=== PATIENT | female | born 1960 | race Caucasian/White ===

== ENCOUNTER 2022-09-08 15:36 | Inpatient (IN) ==
[2022-09-08] MEDS ORDERED: AZITHROMYCIN 250 MG TABLET PO ONE (15:55)
[2022-09-08] MEDS ORDERED: IPRATROPIUM/ALBUTEROL 3 ML AMPUL.NEB NEB ONE ×3 (15:55→18:07)
[2022-09-08] MEDS ORDERED: methylPREDNISolone SOD SUCC 125 MG/2 ML VIAL IV ONE (15:55)
--- NOTE | 2022-09-08 15:59 | Emergency Department Note ---
SOB HPI General Chief Complaint: Shortness of Breath/Dyspnea Stated Complaint: shortness of breath Time Seen by Provider: 09/08/22 15:41 History of Present Illness HPI Narrative: Narrative: This is a pleasant 62-year-old female who presents emergency department with complaints of shortness of breath. She reports that she has COPD and she feels like this is an exacerbation and started couple days ago after she caught a cold. She has been coughing a lot more having body aches mild headache but she thinks that is from coughing so hard. She denies chest pain, abdominal pain, nausea, vomiting, diarrhea, dysuria urinary frequency or urgency. She does not have any history of acute coronary syndrome, no history of DVT or PE. No recent history of surgery or prolonged time immobilization. She denies lower extremity edema or calf pain. She does not think that she has congestive heart failure and does not take Lasix regularly but has taken them in the past when she has had some lower extremity edema. She is not experiencing any increase in her lower extremity edema. She denies paroxysmal nocturnal dyspnea. She reports that at home her oxygen level has been anywhere from mid 80s to 92 on room air. She does have an oxygen concentrator at home that she uses every night when she sleeps. She has been using her nebulizer treatments at home without significant improvement improvement. She reports that she has temporary relief and her oxygen is able to maintain in the low 90s after her breathing treatments but it does not last long. Related Data Home Medications Medication Instructions Recorded Confirmed acetaminophen 500 mg tablet 500 mg PO Q6H PRN 06/21/20 07/23/22 (Tylenol Extra Strength) omeprazole 40 mg capsule,delayed 40 mg PO QDAY 04/22/22 07/23/22 release Previous Rx's Medication Instructions Recorded hydrocortisone 2.5 % topical cream 1 applic DC BID PRN hemorrhoids 09/26/20 with perineal applicator #30 grams (Proctozone-HC) dicyclomine 10 mg capsule 10 mg PO TID #90 caps 11/12/21 estradiol 2 mg tablet 1 mg PO QDAY #45 tabs 12/11/21 celecoxib 100 mg capsule 100 mg PO BID #180 caps 04/10/22 lorazepam 1 mg tablet 0.5 - 1 mg PO QDAY PRN anxiety #30 05/10/22 tabs levothyroxine 125 mcg tablet See Rx Instructions .Route 07/08/22 .COMPLEX #90 tabs doxycycline monohydrate 100 mg 100 mg PO BID #20 caps 07/23/22 capsule Ventolin HFA 90 mcg/actuation See Rx Instructions .Route 08/19/22 aerosol inhaler (albuterol sulfate) .COMPLEX #18 grams budesonide 160 mcg-glycopyr 9 2 inh inhalation BID #10.7 grams 09/03/22 mcg-formot 4.8 mcg/actuation HFA inhaler (Breztri Aerosphere) ipratropium 0.5 mg-albuterol 3 mg 3 ml inhalation QID PRN shortness 09/03/22 (2.5 mg base)/3 mL nebulization of breath or wheezing #180 mL soln Allergies Allergy/AdvReac Type Severity Reaction Status Date / Time latex Allergy Severe itch,burning Verified 06/28/22 10:03 rash codeine Allergy Intermediate itchy and Verified 06/28/22 10:03 body cramps morphine Allergy Intermediate Vomiting Verified 06/28/22 10:03 Lodine Allergy Unknown Unknown Uncoded 06/28/22 10:03 Review of Systems ROS ROS Narrative: Narrative: All systems ED: reviewed and negative except as stated. PFSH Narrative Patient History Narrative: Narrative: Medical/Surgical/Family History All Active Problems (Updated 09/08/22 @ 18:36 by Victor M Plummer PA-C) Acute exacerbation of chronic obstructive pulmonary disease (Acute) Hypoxia (Acute) Bronchitis (Acute) Tobacco use (Chronic) Dermatitis (Acute) Cheilitis (Acute) Nocturnal hypoxemia (Chronic) COPD mixed type (Chronic) Pulmonary fibrosis (Acute) Hypersomnia (Acute) Bronchitis (Acute) Facet arthropathy (Chronic) Cervicalgia (Chronic) Chronic pain (Chronic) Myofascial pain (Acute) History of hernia repair (Chronic ~2012) History of surgery (Chronic) History of laparoscopic cholecystectomy (Chronic) History of colonoscopy (Chronic 04/13/18) History of bowel resection (Chronic ~12/2007) Joint pain (Chronic) History of hysterectomy (Chronic) Cholelithiasis (Chronic) Hormone replacement therapy (HRT) (Chronic) Hypothyroidism (Chronic) Anxiety (Chronic) Asthma (Chronic) Hyperlipidemia (Chronic) Metabolic syndrome X (Chronic) Vitamin D deficiency (Chronic) Abnormal electrocardiogram (Chronic) GERD (gastroesophageal reflux disease) (Chronic) Restless leg syndrome (Chronic) Fatigue (Chronic) Diverticulitis of colon without hemorrhage (Chronic) Hemorrhoids (Chronic) Smoker (Chronic) Emphysema lung (Chronic) Knee pain, right (Chronic) Obesity (Chronic) Osteoarthritis of right knee (Chronic) Encounter for long-term (current) use of medications (Chronic) Chronic neck and back pain (Chronic) Neck pain, acute (Chronic) Medical History Abnormal electrocardiogram Anxiety Asthma Cervicalgia Cholelithiasis Chronic neck and back pain Chronic pain COPD mixed type Diverticulitis of colon without hemorrhage Emphysema lung 2018 Encounter for long-term (current) use of medications Facet arthropathy Fatigue GERD (gastroesophageal reflux disease) Hemorrhoids Hormone replacement therapy (HRT) Hyperlipidemia Hypothyroidism Joint pain hx of joint pain: hip, knees, ankles, feet 2nd to obesity Knee pain, right Metabolic syndrome X Myofascial pain Neck pain, acute Nocturnal hypoxemia Obesity Osteoarthritis of right knee Restless leg syndrome Smoker Vitamin D deficiency Surgical History History of bowel resection (~12/2007) from Leiomyoma (benign) History of colonoscopy (04/13/18) Dr Gonzalez History of hernia repair (~2012) History of hysterectomy History of laparoscopic cholecystectomy History of surgery lapband placed in [place] 9.75 band with 4cc max fill (lost 75# 03/2009) was removed in 2013 and sleeve procedure done in [place] Family History Father High blood pressure Aortic aneurysm Mother Arthritis Sister Arthritis Unknown Cancer Other No pertinent family history Social History Smoking Status: Current every day smoker Alcohol Intake Frequency: does not drink Substance Use: does not use Exam Narrative Narrative: Narrative: General: Alert, in no acute distress Head: No trauma normocephalic Eyes: EOMs intact no scleral icterus or scleral injection Neck: Full range of motion, no midline tenderness ENT: Moist mucous membranes, uvula is midline. No sign of peritonsillar abscess or Sonali's angina. Cardiovascular: Regular rate and rhythm no murmur Respiratory: There is diffuse rhonchi. Expiratory wheezes diffusely. Poor aeration. Mild tachypnea Neuro: Patient is alert and oriented x3 Psych: Normal affect, normal mood Skin: Warm, no rash, normal color Extremity: Negative Homans' sign bilaterally. No unilateral leg edema. Course Vital Signs Vital signs: Vital Signs Temperature 97.9 F 09/08/22 15:55 Pulse Rate 99 H 09/08/22 15:55 Respiratory Rate 30 H 09/08/22 15:55 Blood Pressure 139/89 09/08/22 15:55 Pulse Oximetry (%) 81 L 09/08/22 15:55 Oxygen Delivery Method 09/08/22 15:55 Oxygen Flow Rate (L/min) 3 09/08/22 15:55 Temperature 97.9 F 09/08/22 15:55 Pulse Rate 92 H 09/08/22 18:21 Respiratory Rate 18 09/08/22 18:21 Blood Pressure 107/94 09/08/22 18:21 Pulse Oximetry (%) 93 09/08/22 18:21 Oxygen Delivery Method 09/08/22 18:04 Oxygen Flow Rate (L/min) 2 09/08/22 18:04 [facility] MDM Narrative Medical decision making narrative: Narrative: I have ordered: CBC reviewed and unremarkable CMP reviewed Troponin undetectable proBNP normal Chest x-ray 2 view IMPRESSION: Small patchy bilateral lower lobe infiltrates. C OPD ECG normal sinus rhythm DuoNeb for her wheezing 125 mg iv Solu-Medrol for reactive airway Azithromycin for prophylactic infection control with COPD exacerbation. I did consider pulmonary embolism as a cause for her symptoms but the patient I had shared decision making in regards to getting a D-dimer. She did not think that she wanted to get it since she really had a low suspicion or worry for pulmonary embolism. I agree with the no lower extremity symptoms or signs of DVT and no recent surgeries or procedures and with no chest pain and that she feels like this is a COPD exacerbation we will still get a troponin and proBNP but will hold off on a D-dimer at this time. After her first DuoNeb and Solu-Medrol she reported that she was not feeling like there is a whole lot of change in her breathing. When I read listen to her she did have better aeration although she was still having some wheezing and coarse breath sounds. We will try another DuoNeb and see how she does. After her third DuoNeb here in the emergency department the patient is still did not have a enough improvement in her dyspnea and she was still requiring more oxygen than her baseline. When we got her up to go to the bathroom she was on 2 L which is her baseline and she desatted down to 87%. She had to stop multiple times and could not seem to catch her breath. At this point we will admit for COPD exacerbation and hypoxia. Lab Data Result diagrams: 09/08/22 16:09 09/08/22 16:09 Labs: Lab Results 09/08/22 09/08/22 09/08/22 Range/Units 16:09 16:09 16:09 WBC 6.9 (4.5-11.0) K/mcL RBC 4.97 (3.59-5.38) M/mcL Hgb 14.7 (11.2-15.7) g/dL Hct 45.6 H (34.1-44.9) % MCV 91.8 (80.0-100.0) fL MCH 29.6 (26.0-34.0) pg MCHC 32.2 (31.0-36.0) g/dL RDW 13.8 (11.5-14.5) % Plt Count 204 (140-440) K/mcL MPV 9.4 (8.8-12.5) fL Immature Gran % (Auto) 0.1 (0.0-0.5) % Neut % (Auto) 59.3 (38.0-78.0) % Lymph % (Auto) 28.0 (15.5-49.0) % [place] % (Auto) 8.6 (1.0-12.0) % Eos % (Auto) 3.1 (0.0-7.0) % Baso % (Auto) 0.9 (0.0-2.0) % Lymph # (Auto) 1.92 (1.50-4.80) K/mcL [place] # (Auto) 0.59 (0.10-0.90) K/mcL Eos # (Auto) 0.21 (0.00-0.70) K/mcL Baso # (Auto) 0.06 (0.00-0.30) K/mcL Immature Gran # 0.01 (0.00-0.05) K/mcl Absolute Neutrophils 4.07 (1.80-8.00) K/mcL Sodium 137 (133-145) mmol/L Potassium 4.3 (3.3-5.1) mmol/L Chloride 102 (96-108) mmol/L Carbon Dioxide 27 (22-30) mmol/L Anion Gap 8.0 (8.0-16.0) BUN 11 (8-23) mg/dL Creatinine 0.6 (0.6-1.1) mg/dL GFR Calculation 98 Glucose 99 (70-105) mg/dL Calcium 9.7 (8.6-10.4) mg/dL Total Bilirubin < 0.2 (0.1-1.0) mg/dL AST 17 (<32) U/L ALT 17 (<40) U/L Alkaline Phosphatase 104 (39-117) U/L Troponin T < 0.01 (<0.03) ng/mL NT-Pro-B Natriuret Pep 113.8 (<125.0) pg/mL Total Protein 6.2 (5.9-8.4) gm/dL Albumin 3.7 (3.2-5.2) gm/dL Globulin 2.5 (2.2-3.7) gm/dL Albumin/Globulin Ratio 1.5 (1.0-2.3) ED POC Tests ED POC Tests: ALEX - Influenza A Negative ALEX - Influenza B Negative ALEX - SARS Antigen Negative EKG Data EKG #1: EKG results narrative: ECG shows a sinus rhythm at 88 beats minute, which right axis deviation, right bundle branch block, normal DC interval narrow QRS and QTC is at 480. There is no signs of Brugada, Tgmar-Wquxjuqjm-Vuwbo or HOCM. No ST segment deviations or hyperacute T waves. My interpretation is a sinus rhythm with a right bundle branch block. Discharge Plan Patient/Caregiver Discharge Instructions Pt seen by OUTREACH EDUCATOR/PA only: Yes Clinical Impression: Acute exacerbation of chronic obstructive pulmonary disease, Hypoxia Activity: increase activity as tolerated Patient Disposition: Xfer As Inpt ([facility]) Condition: Serious Follow up with: Ashley Persaud ARNP [Primary Care Provider] - Prescriptions: No Action hydrocortisone [Proctozone-HC] 2.5 % cream with perineal applicator 1 applic DC BID PRN (Reason: hemorrhoids) Qty: 30 4RF dicyclomine 10 mg capsule 10 mg PO TID Qty: 90 3RF estradiol 2 mg tablet 1 mg PO QDAY Qty: 45 3RF celecoxib 100 mg capsule 100 mg PO BID Qty: 180 1RF lorazepam 1 mg tablet 0.5 - 1 mg PO QDAY PRN (Reason: anxiety) Qty: 30 1RF levothyroxine 125 mcg tablet See Rx Instructions .ROUTE .COMPLEX Qty: 90 0RF Dose Instruction: TAKE 1 TABLET BY MOUTH EVERY DAY Rx Instructions: TAKE 1 TABLET BY MOUTH EVERY DAY albuterol sulfate [Ventolin HFA] 90 mcg/actuation HFA aerosol inhaler See Rx Instructions .ROUTE .COMPLEX Qty: 18 6RF Dose Instruction: INHALE 2 PUFFS FOUR TIMES DAILY NEEDED FOR BRONCHOSPASM Rx Instructions: INHALE 2 PUFFS FOUR TIMES DAILY NEEDED FOR BRONCHOSPASM ipratropium-albuterol 0.5 mg-3 mg(2.5 mg base)/3 mL solution for nebulization 3 ml inhalation QID PRN (Reason: shortness of breath or wheezing) Qty: 180 6RF Breztri Aerosphere 160-9-4.8 mcg/actuation HFA aerosol inhaler 2 inh inhalation BID Qty: 10.7 6RF acetaminophen [Tylenol Extra Strength] 500 mg tablet 500 mg PO Q6H PRN Breztri Aerosphere 160-9-4.8 mcg/actuation HFA aerosol inhaler 0RF omeprazole 40 mg capsule,delayed release(DR/EC) 40 mg PO QDAY doxycycline monohydrate 100 mg capsule 100 mg PO BID Qty: 20 0RF
[2022-09-08 16:49] LABS: Basophils # (Auto) 0.06 K/mcL (0.00-0.30); Basophils % (Auto) 0.9 % (0.0-2.0); Eosinophils # (Auto) 0.21 K/mcL (0.00-0.70); Eosinophils % (Auto) 3.1 % (0.0-7.0); Hematocrit 45.6 % (34.1-44.9); Hemoglobin 14.7 g/dL (11.2-15.7); Lymphocytes # (Auto) 1.92 K/mcL (1.50-4.80); Mean Cell Volume 91.8 fL (80.0-100.0); Mean Corpuscular HGB Conc 32.2 g/dL (31.0-36.0); Mean Platelet Volume 9.4 fL (8.8-12.5); Monocytes # (Auto) 0.59 K/mcL (0.10-0.90); Monocytes % (Auto) 8.6 % (1.0-12.0); Neutrophils % (Auto) 59.3 % (38.0-78.0); Platelet Count 204 K/mcL (140-440); RBC 4.97 M/mcL (3.59-5.38); Red Cell Distribution Width 13.8 % (11.5-14.5); WBC 6.9 K/mcL (4.5-11.0)
[2022-09-08 17:16] LABS: proBNP 113.8 pg/mL (<125.0)
[2022-09-08 17:30] LABS: ALT/SGPT 17 U/L (<40); AST/SGOT 17 U/L (<32); Albumin 3.7 gm/dL (3.2-5.2); Albumin/Globulin Ratio 1.5 (1.0-2.3); Alkaline Phosphatase 104 U/L (39-117); Bilirubin,Total < 0.2 mg/dL (0.1-1.0); Blood Urea Nitrogen 11 mg/dL (8-23); Calcium 9.7 mg/dL (8.6-10.4); Carbon Dioxide 27 mmol/L (22-30); Chloride 102 mmol/L (96-108); Globulin 2.5 gm/dL (2.2-3.7); Glomerular Filtration Rate 98; Glucose 99 mg/dL (70-105)
--- NOTE | 2022-09-08 17:59 | XRay Report ---
CLINICAL INFORMATION: COPD and wheezing COMPARISON: 06/19/2021 TECHNIQUE: PA and lateral views were obtained. FINDINGS: The heart size, mediastinum and pulmonary vessels are unremarkable. COPD changes noted. Small patchy infiltrates have developed in both lower lobes. No effusions. IMPRESSION: Small patchy bilateral lower lobe infiltrates. COPD Interpreted and Authenticated by: Stiven Johnson 09/08/22
[2022-09-08] MEDS ORDERED: ONDANSETRON 4 MG ODT TABLET SL PRN (20:05)
[2022-09-08] MEDS ORDERED: ONDANSETRON 4 MG/2 ML VIAL IV PRN (20:05)
[2022-09-08] MEDS ORDERED: MAGNESIUM HYDROXIDE 30 ML ORAL.SUSP PO PRN (20:05)
[2022-09-08] MEDS ORDERED: ZOLPIDEM 5 MG TABLET PO PRN (20:05)
--- NOTE | 2022-09-08 20:11 | Internal Med History&Physical ---
HPI History of Present Illness Patient information: Note initiated : 09/08/22 at 8:10 pm Patient: Polly Perez 62 y/o F admitted on for shortness of breath. Chief Complaint: SOB Chief complaint: Shortness of breath, nonproductive cough for 3 days History of present illness: Ms. Perez is a 62 year old female with known history of COPD on 2 L oxygen at night only, unvaccinated for COVID-19 and influenza by choice, active smoker a pack a day came to emergency room with complaint of progressive shortness of breath nonproductive cough for the past 3 days. Her symptoms got worse progressively. She has no chest pain. She denies fever chills. In the emergency room she was in moderate respiratory distress. She was given IV Solu- Medrol bronchodilator and antibiotic. Chest x-ray showed no evidence of acute pulmonary disease. Currently patient is in mild to moderate respiratory distress. She using accessory muscle respiration with respiratory rate over 30. She seems very uncomfortable. Review of Systems All systems: reviewed and no additional remarkable complaints except as stated Review of systems: Except as documented all systems reviewed and negative PFSH PFSH All Active Problems Acute exacerbation of chronic obstructive pulmonary disease (Acute) Hypoxia (Acute) Acute and chronic respiratory failure with hypoxia (Acute) Bronchitis (Acute) Tobacco use (Chronic) Dermatitis (Acute) Cheilitis (Acute) Nocturnal hypoxemia (Chronic) COPD mixed type (Chronic) Pulmonary fibrosis (Acute) Hypersomnia (Acute) Bronchitis (Acute) Facet arthropathy (Chronic) Cervicalgia (Chronic) Chronic pain (Chronic) Myofascial pain (Acute) History of hernia repair (Chronic ~2012) History of surgery (Chronic) History of laparoscopic cholecystectomy (Chronic) History of colonoscopy (Chronic 04/13/18) History of bowel resection (Chronic ~12/2007) Joint pain (Chronic) History of hysterectomy (Chronic) Cholelithiasis (Chronic) Hormone replacement therapy (HRT) (Chronic) Hypothyroidism (Chronic) Anxiety (Chronic) Asthma (Chronic) Hyperlipidemia (Chronic) Metabolic syndrome X (Chronic) Vitamin D deficiency (Chronic) Abnormal electrocardiogram (Chronic) GERD (gastroesophageal reflux disease) (Chronic) Restless leg syndrome (Chronic) Fatigue (Chronic) Diverticulitis of colon without hemorrhage (Chronic) Hemorrhoids (Chronic) Smoker (Chronic) Emphysema lung (Chronic) Knee pain, right (Chronic) Obesity (Chronic) Osteoarthritis of right knee (Chronic) Encounter for long-term (current) use of medications (Chronic) Chronic neck and back pain (Chronic) Neck pain, acute (Chronic) Medical History Abnormal electrocardiogram Anxiety Asthma Cervicalgia Cholelithiasis Chronic neck and back pain Chronic pain COPD mixed type Diverticulitis of colon without hemorrhage Emphysema lung 2018 Encounter for long-term (current) use of medications Facet arthropathy Fatigue GERD (gastroesophageal reflux disease) Hemorrhoids Hormone replacement therapy (HRT) Hyperlipidemia Hypothyroidism Joint pain hx of joint pain: hip, knees, ankles, feet 2nd to obesity Knee pain, right Metabolic syndrome X Myofascial pain Neck pain, acute Nocturnal hypoxemia Obesity Osteoarthritis of right knee Restless leg syndrome Smoker Vitamin D deficiency Surgical History History of bowel resection (~12/2007) from Leiomyoma (benign) History of colonoscopy (04/13/18) Dr Gonzalez History of hernia repair (~2012) History of hysterectomy History of laparoscopic cholecystectomy History of surgery lapband placed in [place] 9.75 band with 4cc max fill (lost 75# 03/2009) was removed in 2013 and sleeve procedure done in [place] Family History Father High blood pressure Aortic aneurysm Mother Arthritis Sister Arthritis Unknown Cancer Other No pertinent family history Social History household members: alone lives independently: Yes marital status: single occupational status: retired physical activity: none smoking status: Current every day smoker tobacco type: cigarettes per day: 15 pack-years: 40 alcohol intake frequency: does not drink substance use type: does not use MEDS/ALLERGIES Home Medications and Allergies Home Medications Medication Instructions Recorded Confirmed Type acetaminophen 500 mg tablet 500 mg PO Q6H PRN Pain 06/21/20 09/08/22 History (Tylenol Extra Strength) hydrocortisone 2.5 % topical cream 1 applic [place] BID PRN hemorrhoids 09/26/20 09/08/22 Rx with perineal applicator #30 grams (Proctozone-HC) dicyclomine 10 mg capsule 10 mg PO TID #90 caps 11/12/21 09/08/22 Rx estradiol 2 mg tablet 1 mg PO QDAY #45 tabs 12/11/21 09/08/22 Rx celecoxib 100 mg capsule 100 mg PO BID #180 caps 04/10/22 09/08/22 Rx omeprazole 40 mg capsule,delayed 40 mg PO BID 04/22/22 09/08/22 History release lorazepam 1 mg tablet 0.5 - 1 mg PO QDAY PRN anxiety #30 05/10/22 09/08/22 Rx tabs budesonide 160 mcg-glycopyr 9 2 inh inhalation BID #10.7 grams 09/03/22 09/08/22 Rx mcg-formot 4.8 mcg/actuation HFA inhaler (Breztri Aerosphere) ipratropium 0.5 mg-albuterol 3 mg 3 ml inhalation QID PRN shortness 09/03/22 09/08/22 Rx (2.5 mg base)/3 mL nebulization of breath or wheezing #180 mL soln albuterol sulfate 90 mcg/actuation 2 puff inhalation QIDP PRN muscle 09/08/22 09/08/22 History aerosol inhaler (Ventolin HFA) spasm levothyroxine 125 mcg tablet 1 tab PO QDAY 09/08/22 09/08/22 History Allergies Allergy/AdvReac Type Severity Reaction Status Date / Time latex Allergy Severe itch,burning Verified 06/28/22 10:03 rash codeine Allergy Intermediate itchy and Verified 06/28/22 10:03 body cramps morphine Allergy Intermediate Vomiting Verified 06/28/22 10:03 Lodine Allergy Unknown Unknown Uncoded 06/28/22 10:03 EXAM Constitutional Vitals: Temp Pulse Resp BP Pulse Ox O2 Del Method O2 Flow Rate 97.9 F 83 15 100/60 96 3 09/08/22 15:55 09/08/22 20:01 09/08/22 20:01 09/08/22 20:01 09/08/22 20:01 09/08/22 19:21 09/08/22 19:21 General: Well-developed, morbidly obese with BMI 40 in mild respiratory distress HEENT: Atraumatic, normocephalic.PERRLA, moist mucous membrane. Anicteric sclera Chest: No point tenderness.No point tenderness. Lungs: High respiratory rate, decreased breath sound bilaterally with bilateral inspiratory and expiratory wheezing Cardiovascular: Regular rate and rhythm. S1 + S2, no murmur gallop rub. No peripheral edema. No JVD Extremities: No peripheral edema. 2+ pulses bilateral equal and symmetric GI: Abdomen soft, nontender, positive bowel sounds. No hepatosplenomegaly. No rebound tenderness. No CVA tenderness. Conway sign is negative : No Ludwig catheter. No bladder distention FLOW WORKER: Awake alert oriented x3. Cranial nerves II through XII 12 grossly intact. Motor, sensory intact. DTR 2+ upper lower extremity: Symmetric Skin:Dry. No rash. Lymph: No lymphadenopathy Psychiatric: Normal mood and affect DATA Data Completed and Pending Labs: Labs from last 24 hours 09/08/22 09/08/22 09/08/22 16:09 16:09 16:09 WBC 6.9 RBC 4.97 Hgb 14.7 Hct 45.6 H MCV 91.8 MCH 29.6 MCHC 32.2 RDW 13.8 Plt Count 204 MPV 9.4 Immature Gran % (Auto) 0.1 Neut % (Auto) 59.3 Lymph % (Auto) 28.0 [place] % (Auto) 8.6 Eos % (Auto) 3.1 Baso % (Auto) 0.9 Lymph # (Auto) 1.92 [place] # (Auto) 0.59 Eos # (Auto) 0.21 Baso # (Auto) 0.06 Immature Gran # 0.01 Absolute Neutrophils 4.07 Sodium 137 Potassium 4.3 Chloride 102 Carbon Dioxide 27 Anion Gap 8.0 BUN 11 Creatinine 0.6 GFR Calculation 98 Glucose 99 Calcium 9.7 Total Bilirubin < 0.2 AST 17 ALT 17 Alkaline Phosphatase 104 Troponin T < 0.01 NT-Pro-B Natriuret Pep 113.8 Total Protein 6.2 Albumin 3.7 Globulin 2.5 Albumin/Globulin Ratio 1.5 Impressions Impressions: Chest x-ray: Small patchy bilateral lower lobe infiltrates. COPD A/P Sepsis Sepsis Identified: No Narrative A/P Narrative: 62 years old female with 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 #Acute on chronic hypoxic respiratory failure #COPD exacerbation #Community-acquired pneumonia, with bilateral lower lobe patchy infiltrate - CxR Small patchy bilateral lower lobe infiltrates. COPD - Covid 19, Inf Negative. -Continue azithromycin, add Rocephin for CAP. Solu-Medrol 40 every 8, bronchodilator, Acapella -Transfer to PCU. Start BiPAP if her symptoms got worse. Discussed with ICU/PCU team and housekeeping and laundry team leader #Unvaccinated for COVID-19 and influenza -High risk. I have long conversation with patient regarding importance of vaccination. She is going to consider it. #GERD -Continue home omeprazole #Hypothyroidism: -Continue home levothyroxine DVT PPX: Lovenox 40mg twice daily Code Status : Full code Disposition: Inpatient Plan of care discussed with patient and family member as well as RN Time Spent With Patient Time: Total time spent is greater than 50% in coordination of care (as documented) at patient's floor/unit and/or counseling patient: Total time spent with greater than 50% in coordination of care (as documented) at patient's floor/unit and/or counseling patient:: 50 - 70 minutes Critical Care Time: No
[2022-09-08] MEDS ORDERED: ALBUTEROL SULFATE 60 PUFF INHALER INH PRN ×2 (20:15→21:41)
[2022-09-08] MEDS ORDERED: LORazepam 1 MG TABLET PO PRN (20:55)
[2022-09-08] MEDS: IPRATROPIUM/ALBUTEROL 3 ML AMPUL.NEB NEB PRN (21:08)
[2022-09-08] MEDS ORDERED: morphine 2 MG/ML VIAL IV PRN (21:42)
[2022-09-08] MEDS ORDERED: guaiFENesin/DEXTROMETHORPHAN ORAL SOL ONE (22:25)
[2022-09-08] MEDS: LORazepam 1 MG TABLET PO PRN (22:29)
[2022-09-08] MEDS: cefTRIAXone 1 GM VIAL IV SCH (22:29)
[2022-09-08] MEDS: DOCUSATE SODIUM 100 MG CAPSULE PO SCH (22:29)
[2022-09-08] MEDS: ENOXAPARIN 40 MG/0.4 ML SYRINGE SQ SCH (22:29)
[2022-09-08] MEDS: methylPREDNISolone SOD SUCC 40 MG/ML VIAL IV SCH (22:30)
[2022-09-08] MEDS: guaiFENesin/DEXTROMETHORPHAN ORAL SOL PO PRN (22:30)
[2022-09-08] MEDS: ACETAMINOPHEN 325 MG TABLET PO PRN (22:30)
[2022-09-08] MEDS: DICYCLOMINE 20 MG TABLET PO SCH (22:31)
[2022-09-08] MEDS: BENZONATATE 100 MG CAPSULE PO PRN (22:33)
[2022-09-08] MEDS: 0.9 % SODIUM CHLORIDE 10 ML SYRINGE IV SCH (22:35)
[2022-09-08] MEDS: BUDESONIDE GLYCOPYR FORMOTEROL INH SCH (22:37)
[2022-09-08] MEDS: CELEBREX PO SCH (22:37)
[2022-09-08] MEDS: SENNOSIDES 1 TABLET PO SCH (22:46)
[2022-09-09] MEDS ORDERED: guaiFENesin/DEXTROMETHORPHAN ORAL SOL ONE ×2 (03:01→03:02)
[2022-09-09] MEDS: BENZONATATE 100 MG CAPSULE PO PRN ×3 (03:06→20:59)
[2022-09-09] MEDS: LORazepam 1 MG TABLET PO PRN ×3 (03:06→18:50)
[2022-09-09] MEDS: methylPREDNISolone SOD SUCC 40 MG/ML VIAL IV SCH ×3 (05:13→21:26)
[2022-09-09] MEDS: 0.9 % SODIUM CHLORIDE 10 ML SYRINGE IV SCH ×3 (05:14→20:41)
[2022-09-09] MEDS: LEVOTHYROXINE 125 MCG TABLET PO SCH (07:29)
[2022-09-09] MEDS: OMEPRAZOLE 20 MG CAPSULE PO SCH (07:29)
[2022-09-09] MEDS: guaiFENesin/DEXTROMETHORPHAN ORAL SOL PO PRN ×4 (07:29→20:42)
[2022-09-09] MEDS: BUDESONIDE 0.5 MG/2 ML AMPUL.NEB NEB SCH ×2 (07:46→21:01)
[2022-09-09] MEDS: IPRATROPIUM/ALBUTEROL 3 ML AMPUL.NEB NEB PRN ×3 (07:46→21:01)
[2022-09-09] MEDS: CELEBREX PO SCH ×2 (08:00→20:41)
[2022-09-09] MEDS: BUDESONIDE GLYCOPYR FORMOTEROL INH SCH ×2 (08:00→20:40)
[2022-09-09] MEDS: DOCUSATE SODIUM 100 MG CAPSULE PO SCH ×3 (08:10→20:39)
[2022-09-09] MEDS: ENOXAPARIN 40 MG/0.4 ML SYRINGE SQ SCH ×2 (08:10→20:39)
[2022-09-09] MEDS: AZITHROMYCIN 250 MG TABLET PO SCH (08:10)
[2022-09-09] MEDS: cefTRIAXone 1 GM VIAL IV SCH (08:11)
[2022-09-09] MEDS: DICYCLOMINE 20 MG TABLET PO SCH ×3 (08:11→20:39)
[2022-09-09] MEDS ORDERED: ESTRADIOL 2 MG TABLET PO SCH (09:00)
[2022-09-09] MEDS ORDERED: AZITHROMYCIN 500 MG in DEXTROSE 5% IN WATER 250 ML IV SCH (09:00)
--- NOTE | 2022-09-09 11:09 | Internal Med Progress Note ---
SUBJECTIVE Subjective Patient information: Note initiated : 09/09/22 at 11:05 am Patient: Polly Perez 62 y/o F admitted on 09/08/22 for shortness of breath. Chief Complaint: Shortness of breath cough Interval history: Patient was transferred to PCU last night due to moderate respiratory distress. She was off and on BiPAP. This morning she is on BiPAP. She seems otherwise comfortable. No reported fever, chills, chest pain. Pertinent ROS: Except as documented all systems reviewed and negative Constitutional Vitals: Vital Signs Temp Pulse Resp BP Pulse Ox O2 Del Method O2 Flow Rate 97.2 F 69 15 129/85 91 4 09/09/22 08:00 09/09/22 10:00 09/09/22 10:00 09/09/22 10:00 09/09/22 10:00 09/09/22 08:00 09/09/22 08:00 Period Temp Pulse Resp BP Sys/Arana Pulse Ox O2 Del Method O2 Flow Rate Last 24 Hr 97.2 F-98.5 F 59-106 14-30 81-152/60-104 81-98 Nasal Cannula- Room Air 2-4 Intake and Output 09/08/22 09/09/22 09/09/22 19:59 03:59 11:59 Intake Total 400 Output Total 200 200 Balance -200 200 Weight 102.058 kg 99.337 kg Intake & Output: Intake & Output 09/08/22 09/09/22 09/09/22 19:59 03:59 11:59 Intake Total 400 Output Total 200 200 Balance -200 200 Weight 102.058 kg 99.337 kg Intake: Oral 400 Output: Void Amount 200 200 Other: Meal Breakfast Percent of Meal Consumed 25% Urine Color Yellow General: Well-developed, morbidly obese with BMI 40 on BiPAP. Seems comfortable HEENT: Atraumatic, normocephalic.PERRLA, moist mucous membrane. Anicteric sclera Chest: No point tenderness.No point tenderness. Lungs: Mild bilateral expiratory wheezing. No crackles Cardiovascular: Regular rate and rhythm. S1 + S2, no murmur gallop rub. No peripheral edema. No JVD Extremities: No peripheral edema. 2+ pulses bilateral equal and symmetric GI: Abdomen soft, nontender, positive bowel sounds. No hepatosplenomegaly. No rebound tenderness. No CVA tenderness. Conway sign is negative PHYSICIAN GENERAL INTERNAL MEDICINE: Awake alert oriented x3. Cranial nerves II through XII 12 grossly intact. Motor, sensory intact. DTR 2+ upper lower extremity: Symmetric Skin:Dry. No rash. Psychiatric: Normal mood and affect OBJ DATA Labs CBC & Chem 7: 09/08/22 16:09 09/08/22 16:09 Labs: Abnormal Lab Results 09/08/22 16:09 Hct 45.6 H Meds: Medications Acetaminophen (Acetaminophen 325 Mg Tablet) 650 mg PO Q6HP PRN; Protocol PRN Reason: Per Pain Protocol/Fever > 101 Last Admin: 09/08/22 22:30 Dose: 650 mg Albuterol Sulfate (Albuterol Sulfate 60 Puff Inhaler) 2 puff INH QIDP PRN PRN Reason: muscle spasm Albuterol/Ipratropium (Ipratropium/Albuterol 3 Ml Ampul.Neb) 3 ml NEB QIDP PRN PRN Reason: shortness of breath or wheezin Last Admin: 09/09/22 07:46 Dose: 3 ml Azithromycin (Azithromycin 250 Mg Tablet) 500 mg PO DAILY [facility] Stop: 09/10/22 12:00 Last Admin: 09/09/22 08:10 Dose: 500 mg Benzonatate (Benzonatate 100 Mg Capsule) 200 mg PO TIDP PRN PRN Reason: Cough Last Admin: 09/09/22 09:03 Dose: 200 mg Budesonide (Budesonide 0.5 Mg/2 Ml Ampul.Neb) 0.5 mg NEB BID [facility] Last Admin: 09/09/22 07:46 Dose: 0.5 mg Ceftriaxone Sodium (Ceftriaxone 1 Gm Vial) 1 gm IV Q24H [facility]; Protocol Last Admin: 09/09/22 08:11 Dose: 1 gm Dicyclomine HCl (Dicyclomine 20 Mg Tablet) 10 mg PO TID [facility] Last Admin: 09/09/22 08:11 Dose: 10 mg Docusate Sodium (Docusate Sodium 100 Mg Capsule) 100 mg PO BID [facility] Last Admin: 09/09/22 08:10 Dose: 100 mg Enoxaparin Sodium (Enoxaparin 40 Mg/0.4 Ml Syringe) 40 mg SQ BID [facility] Last Admin: 09/09/22 08:10 Dose: 40 mg Estradiol (Estradiol 2 Mg Tablet) 1 mg PO QDAY [facility] Guaifenesin (Guaifenesin/Dextromethorphan Oral Destinee) 10 ml PO Q4HP PRN PRN Reason: Cough Last Admin: 09/09/22 07:29 Dose: 10 ml Levothyroxine Sodium (Levothyroxine 125 Mcg Tablet) 125 mcg PO 0730 [facility] Last Admin: 09/09/22 07:29 Dose: 125 mcg Lorazepam (Lorazepam 1 Mg Tablet) 0.5 - 1 mg PO Q4HP PRN PRN Reason: ANXIETY/SEDATION Last Admin: 09/09/22 08:11 Dose: 1 mg Magnesium Hydroxide (Magnesium Hydroxide 30 Ml Oral.Susp) 30 ml PO DAILYP PRN PRN Reason: Constipation Methylprednisolone Sodium Succinate (Methylprednisolone Sod Succ 40 Mg/Ml Vial) 40 mg IV Q8 [facility] Last Admin: 09/09/22 05:13 Dose: 40 mg Omeprazole (Omeprazole 20 Mg Capsule) 40 mg PO ACB [facility] Last Admin: 09/09/22 07:29 Dose: 40 mg Ondansetron HCl (Ondansetron 4 Mg/2 Ml Vial) 4 mg IV Q6HP PRN PRN Reason: Nausea And Vomiting Ondansetron HCl (Ondansetron 4 Mg Odt Tablet) 4 mg SL Q6HP PRN PRN Reason: Nausea And Vomiting Budesonide-Glycopyr- Formoterol [Breztri Aerosphere 2 dose INH BID [facility] Last Admin: 09/09/22 08:00 Dose: Not Given Celebrex 100mg 1 dose PO BID [facility] Last Admin: 09/09/22 08:00 Dose: Not Given Senna (Sennosides 1 Tablet) 2 tab PO HS [facility] Last Admin: 09/08/22 22:46 Dose: 2 tab Sodium Chloride (0.9 % Sodium Chloride 10 Ml Syringe) 10 ml IV Q8 [facility] Last Admin: 09/09/22 05:14 Dose: 10 ml Zolpidem Tartrate (Zolpidem 5 Mg Tablet) 5 mg PO HSP PRN PRN Reason: Insomnia A/P Narrative A/P Narrative: 62 years old female with 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 #Acute on chronic hypoxic respiratory failure #COPD exacerbation #Community-acquired pneumonia, with bilateral lower lobe patchy infiltrate - CxR Small patchy bilateral lower lobe infiltrates. COPD - Covid 19, Inf Negative. -Continue azithromycin, add Rocephin for CAP. Solu-Medrol 40 every 8, bronchodilator, Acapella -Continue BiPAP as needed. -Ativan low-dose for anxiety which cause patient hyperventilation #Unvaccinated for COVID-19 and influenza -High risk. I have long conversation with patient regarding importance of vaccination. She is going to consider it. #GERD -Continue home omeprazole #Hypothyroidism: -Continue home levothyroxine DVT PPX: Lovenox 40mg twice daily Code Status : Full code Disposition: Inpatient Plan of care discussed with patient and RN Time Spent With Patient Time: Total time spent is greater than 50% in coordination of care (as documented) at patient's floor/unit and/or counseling patient: Total time spent with greater than 50% in coordination of care (as documented) at patient's floor/unit and/or counseling patient:: 25 - 35 minutes Critical Care Time: No QUALITY VTE Deep Vein Thrombosis/Pulmonary Embolism Present on Admission: No
--- NOTE | 2022-09-09 12:14 | EKG ---
[facility] Minor Care Test Date: 2022-09-08 Pat Name: Polly Perez Department: ED Room: Gender: Female Insurance Administrative Assistant: scar : [id number] Requested By: Victor M Plummer Order Number: [id number] Reading MD: Stiven Ordoñez M.D. Measurements Intervals [place] Rate: 88 P: 83 MS: 167 QRS: 113 QRSD: 145 T: 24 QT: 396 QTc: 480 Interpretive Statements Sinus rhythm Right bundle branch block Abnormal lateral Q waves Electronically Signed On 09-09-2022 12:13:53 PST by Stiven Ordoñez M.D. /store/[email or web address]/[id number]
[2022-09-09] MEDS: ESTRADIOL 1 MG TABLET PO SCH (12:17)
[2022-09-09] MEDS: ACETAMINOPHEN 325 MG TABLET PO PRN (13:07)
[2022-09-09] MEDS: SENNOSIDES 1 TABLET PO SCH (20:41)
[2022-09-10] MEDS: LORazepam 1 MG TABLET PO PRN ×5 (00:36→18:28)
[2022-09-10] MEDS: guaiFENesin/DEXTROMETHORPHAN ORAL SOL PO PRN ×5 (00:37→18:28)
[2022-09-10] MEDS: BENZONATATE 100 MG CAPSULE PO PRN ×3 (04:05→18:28)
[2022-09-10] MEDS: 0.9 % SODIUM CHLORIDE 10 ML SYRINGE IV SCH ×3 (05:46→23:59)
[2022-09-10] MEDS: methylPREDNISolone SOD SUCC 40 MG/ML VIAL IV SCH ×3 (05:46→23:54)
[2022-09-10] MEDS: DICYCLOMINE 20 MG TABLET PO SCH ×3 (08:21→20:36)
[2022-09-10] MEDS: OMEPRAZOLE 20 MG CAPSULE PO SCH (08:21)
[2022-09-10] MEDS: ENOXAPARIN 40 MG/0.4 ML SYRINGE SQ SCH ×2 (08:22→20:36)
[2022-09-10] MEDS: ESTRADIOL 1 MG TABLET PO SCH (08:22)
[2022-09-10] MEDS: LEVOTHYROXINE 125 MCG TABLET PO SCH (08:22)
[2022-09-10] MEDS: cefTRIAXone 1 GM VIAL IV SCH (08:29)
[2022-09-10] MEDS: DOCUSATE SODIUM 100 MG CAPSULE PO SCH ×2 (08:30→21:15)
[2022-09-10] MEDS: AZITHROMYCIN 250 MG TABLET PO SCH (08:33)
[2022-09-10] MEDS: IPRATROPIUM/ALBUTEROL 3 ML AMPUL.NEB NEB PRN (09:04)
[2022-09-10] MEDS: BUDESONIDE 0.5 MG/2 ML AMPUL.NEB NEB SCH ×2 (09:04→19:00)
[2022-09-10] MEDS: IPRATROPIUM/ALBUTEROL 3 ML AMPUL.NEB NEB SCH ×4 (10:51→23:00)
--- NOTE | 2022-09-10 11:04 | Internal Med Progress Note ---
SUBJECTIVE Subjective Patient information: Note initiated : 09/10/22 at 11:02 am Service Date, if different from initiated Date: [] Patient: Polly Perez 62 y/o F admitted on 09/08/22 for shortness of breath. Chief Complaint: [] Principal diagnosis: cood exacerbation Interval history: Patient seen examined, On bipap today, feels better but still not at baseline still has cough bouts and anxiety Pertinent ROS: Denies headache, dizziness Denies chest pain, palpitations Denies cough or shortness of breath Denies abdominal pain, nausea or vomiting. Additional PMFSH (Level 3 Only): Reviewed not contributory to present illness Constitutional Vitals: Vital Signs Temp Pulse Resp BP Pulse Ox O2 Del Method O2 Flow Rate 97.0 F 99 H 16 124/80 96 4 09/10/22 08:00 09/10/22 10:00 09/10/22 10:00 09/10/22 10:00 09/10/22 10:00 09/10/22 10:00 09/10/22 09:11 Period Temp Pulse Resp BP Sys/Arana Pulse Ox O2 Del Method O2 Flow Rate Last 24 Hr 97.0 F-98.1 F 63-117 11-32 105-134/64-97 90-100 BiPAP-Nasal Cannula 4-30 Intake and Output 09/09/22 09/10/22 09/10/22 19:59 03:59 11:59 Intake Total 600 290 Output Total 401 150 600 Balance 199 -150 -310 Weight 98.112 kg Intake & Output: Intake & Output 09/09/22 09/10/22 09/10/22 19:59 03:59 11:59 Intake Total 600 290 Output Total 401 150 600 Balance 199 -150 -310 Weight 98.112 kg Intake: Oral 600 290 Output: Void Amount 400 150 600 # of times incontinent of urine 1 Other: Meal Dinner Breakfast Percent of Meal Consumed 75% 75% Feeding Ability Independent Assist with Tray Set Up Urine Appearance Clear Clear Clear Urine Color Dark Yellow Yellow Yellow # Voids 1 # Bowel Movements 1 Exam: Constitutional; Afebrile, cooperative, alert, not in distress. Eyes- No icterus, , No periorbital swelling Ears- Ext ear normal, hearing normal to conversation. Neck- Midline trachea, supple Respiratory system: Air Entry equal on both sides,on bipap, appears comfortable, camden exp wheezing present. CVS- Rate rhythm regular, S1,S2 heard, no gallop, no rub. 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 OBJ DATA Labs CBC & Chem 7: 09/08/22 16:09 09/08/22 16:09 Labs: Abnormal Lab Results 09/08/22 16:09 Hct 45.6 H Meds: Medications Acetaminophen (Acetaminophen 325 Mg Tablet) 650 mg PO Q6HP PRN; Protocol PRN Reason: Per Pain Protocol/Fever > 101 Last Admin: 09/09/22 13:07 Dose: 650 mg Albuterol Sulfate (Albuterol Sulfate 60 Puff Inhaler) 2 puff INH QIDP PRN PRN Reason: muscle spasm Albuterol/Ipratropium (Ipratropium/Albuterol 3 Ml Ampul.Neb) 3 ml NEB QIDP PRN PRN Reason: shortness of breath or wheezin Last Admin: 09/10/22 09:04 Dose: 3 ml Albuterol/Ipratropium (Ipratropium/Albuterol 3 Ml Ampul.Neb) 3 ml NEB Q4HRT [facility] Last Admin: 09/10/22 10:51 Dose: Not Given Azithromycin (Azithromycin 250 Mg Tablet) 500 mg PO DAILY [facility] Stop: 09/10/22 12:00 Last Admin: 09/10/22 08:33 Dose: 500 mg Benzonatate (Benzonatate 100 Mg Capsule) 200 mg PO TIDP PRN PRN Reason: Cough Last Admin: 09/10/22 04:05 Dose: 200 mg Budesonide (Budesonide 0.5 Mg/2 Ml Ampul.Neb) 0.5 mg NEB BID [facility] Last Admin: 09/10/22 09:04 Dose: 0.5 mg Ceftriaxone Sodium (Ceftriaxone 1 Gm Vial) 1 gm IV Q24H [facility]; Protocol Last Admin: 09/10/22 08:29 Dose: 1 gm Dicyclomine HCl (Dicyclomine 20 Mg Tablet) 10 mg PO TID [facility] Last Admin: 09/10/22 08:21 Dose: 10 mg Docusate Sodium (Docusate Sodium 100 Mg Capsule) 100 mg PO BID [facility] Last Admin: 12/27/22 08:30 Dose: Not Given Enoxaparin Sodium (Enoxaparin 40 Mg/0.4 Ml Syringe) 40 mg SQ BID [facility] Last Admin: 09/10/22 08:22 Dose: 40 mg Estradiol (Estradiol 1 Mg Tablet) 1 mg PO QDAY [facility] Last Admin: 09/10/22 08:22 Dose: 1 mg Guaifenesin (Guaifenesin/Dextromethorphan Oral Destinee) 10 ml PO Q4HP PRN PRN Reason: Cough Last Admin: 09/10/22 08:45 Dose: 10 ml Levothyroxine Sodium (Levothyroxine 125 Mcg Tablet) 125 mcg PO 0730 [facility] Last Admin: 09/10/22 08:22 Dose: 125 mcg Lorazepam (Lorazepam 1 Mg Tablet) 0.5 - 1 mg PO Q4HP PRN PRN Reason: ANXIETY/SEDATION Magnesium Hydroxide (Magnesium Hydroxide 30 Ml Oral.Susp) 30 ml PO DAILYP PRN PRN Reason: Constipation Methylprednisolone Sodium Succinate (Methylprednisolone Sod Succ 40 Mg/Ml Vial) 40 mg IV Q8 [facility] Last Admin: 09/10/22 05:46 Dose: 40 mg Omeprazole (Omeprazole 20 Mg Capsule) 40 mg PO ACB [facility] Last Admin: 09/10/22 08:21 Dose: 40 mg Ondansetron HCl (Ondansetron 4 Mg/2 Ml Vial) 4 mg IV Q6HP PRN PRN Reason: Nausea And Vomiting Ondansetron HCl (Ondansetron 4 Mg Odt Tablet) 4 mg SL Q6HP PRN PRN Reason: Nausea And Vomiting Budesonide-Glycopyr- Formoterol [Breztri Aerosphere 2 dose INH BID [facility] Last Admin: 09/09/22 20:40 Dose: 2 dose Celebrex 100mg 1 dose PO BID [facility] Last Admin: 09/09/22 20:41 Dose: 1 dose Senna (Sennosides 1 Tablet) 2 tab PO HS [facility] Last Admin: 09/09/22 20:41 Dose: Not Given Sodium Chloride (0.9 % Sodium Chloride 10 Ml Syringe) 10 ml IV Q8 [facility] Last Admin: 09/10/22 05:46 Dose: 10 ml Zolpidem Tartrate (Zolpidem 5 Mg Tablet) 5 mg PO HSP PRN PRN Reason: Insomnia A/P Narrative A/P Narrative: 62 years old female with 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 #Acute on chronic hypoxic respiratory failure #COPD exacerbation #Community-acquired pneumonia, with bilateral lower lobe patchy infiltrate - CxR Small patchy bilateral lower lobe infiltrates. COPD - Covid 19, Inf Negative. -Continue azithromycin, add Rocephin for CAP. Solu-Medrol 40 every 8, bronchodilator, Acapella, add scheduled duonebs q4 hrs -Continue BiPAP as needed. -Ativan for anxiety which cause patient hyperventilation #Unvaccinated for COVID-19 and influenza -High risk. I have long conversation with patient regarding importance of vaccination. #GERD -Continue home omeprazole #Hypothyroidism: -Continue home levothyroxine DVT PPX: Lovenox 40mg twice daily Code Status : Full code Disposition: Inpatient Plan of care discussed with patient and RN Time Spent With Patient Time: Total time spent is greater than 50% in coordination of care (as documented) at patient's floor/unit and/or counseling patient: QUALITY VTE Deep Vein Thrombosis/Pulmonary Embolism Present on Admission: No
[2022-09-10] MEDS: BUDESONIDE GLYCOPYR FORMOTEROL INH SCH ×2 (11:15→20:37)
[2022-09-10] MEDS: CELEBREX PO SCH ×2 (11:15→20:36)
[2022-09-10] MEDS: SENNOSIDES 1 TABLET PO SCH (20:37)
[2022-09-10] MEDS ORDERED: OLANZapine 10 MG VIAL IM PRN ×2 (20:52→20:53)
[2022-09-10] MEDS ORDERED: OLANZapine 10 MG VIAL IM SCH (21:00)
[2022-09-11] MEDS: IPRATROPIUM/ALBUTEROL 3 ML AMPUL.NEB NEB SCH ×5 (03:01→19:01)
[2022-09-11] MEDS: guaiFENesin/DEXTROMETHORPHAN ORAL SOL PO PRN ×2 (05:15→15:10)
[2022-09-11] MEDS: 0.9 % SODIUM CHLORIDE 10 ML SYRINGE IV SCH ×5 (05:32→21:52)
[2022-09-11] MEDS: methylPREDNISolone SOD SUCC 40 MG/ML VIAL IV SCH ×3 (05:32→21:52)
[2022-09-11] MEDS: BUDESONIDE 0.5 MG/2 ML AMPUL.NEB NEB SCH ×2 (07:37→19:01)
[2022-09-11] MEDS: DICYCLOMINE 20 MG TABLET PO SCH ×3 (08:29→21:49)
[2022-09-11] MEDS: OMEPRAZOLE 20 MG CAPSULE PO SCH (08:29)
[2022-09-11] MEDS: DOCUSATE SODIUM 100 MG CAPSULE PO SCH ×3 (08:29→21:48)
[2022-09-11] MEDS: cefTRIAXone 1 GM VIAL IV SCH (08:30)
[2022-09-11] MEDS: CELEBREX PO SCH ×2 (08:30→21:51)
[2022-09-11] MEDS: ESTRADIOL 1 MG TABLET PO SCH (08:30)
[2022-09-11] MEDS: LEVOTHYROXINE 125 MCG TABLET PO SCH (08:30)
[2022-09-11] MEDS: BUDESONIDE GLYCOPYR FORMOTEROL INH SCH ×2 (08:30→21:52)
[2022-09-11] MEDS: ENOXAPARIN 40 MG/0.4 ML SYRINGE SQ SCH ×2 (08:30→21:51)
[2022-09-11] MEDS: BENZONATATE 100 MG CAPSULE PO PRN ×2 (08:35→19:27)
--- NOTE | 2022-09-11 15:01 | Internal Med Progress Note ---
SUBJECTIVE Subjective Patient information: Note initiated : 09/11/22 at 2:59 pm Service Date, if different from initiated Date: [] Patient: Polly Perez 62 y/o F admitted on 09/08/22 for shortness of breath. Chief Complaint: [] Principal diagnosis: cood exacerbation Interval history: Patient seen examined, This am breathing better, not on bipap, but still on 4L oxygen supplement, at home uses only during sleep no other acute complains or concerns Does have anxiety spells, and needs prn ativan, ativan requirements are improving now. Pertinent ROS: Denies headache, dizziness Denies chest pain, palpitations Denies improving cough and shortness of breath Denies abdominal pain, nausea or vomiting. Constitutional Vitals: Vital Signs Temp Pulse Resp BP Pulse Ox O2 Del Method O2 Flow Rate 97.1 F 89 17 150/91 94 4 09/11/22 12:01 09/11/22 14:32 09/11/22 14:32 09/11/22 14:32 09/11/22 14:32 09/11/22 14:32 09/11/22 14:32 Period Temp Pulse Resp BP Sys/Arana Pulse Ox O2 Del Method O2 Flow Rate Last 24 Hr 96.9 F-97.3 F 62-103 13-25 104-150/68-91 76-99 BiPAP-Room Air 4-6 Intake and Output 09/11/22 09/11/22 09/11/22 03:59 11:59 19:59 Intake Total 150 Output Total 200 300 Balance -200 -150 Intake & Output: Intake & Output 09/11/22 09/11/22 09/11/22 03:59 11:59 19:59 Intake Total 150 Output Total 200 300 Balance -200 -150 Intake: Oral 150 Output: Void Amount 200 300 Other: Meal Breakfast Percent of Meal Consumed 100% Feeding Ability Independent Urine Appearance Clear Clear Urine Color Dark Yellow Yellow Exam: Constitutional; Afebrile, cooperative, alert, not in distress. Eyes- No icterus, , No periorbital swelling Ears- Ext ear normal, hearing normal to conversation. Neck- Midline trachea, supple Respiratory system: Air Entry equal on both sides, camden wheeze improving, and air entry is much better than yesterday. CVS- Rate rhythm regular, S1,S2 heard, no gallop, no rub. 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 OBJ DATA Labs CBC & Chem 7: 09/08/22 16:09 09/08/22 16:09 Labs: Abnormal Lab Results 09/08/22 16:09 Hct 45.6 H Meds: Medications Acetaminophen (Acetaminophen 325 Mg Tablet) 650 mg PO Q6HP PRN; Protocol PRN Reason: Per Pain Protocol/Fever > 101 Last Admin: 09/09/22 13:07 Dose: 650 mg Albuterol Sulfate (Albuterol Sulfate 60 Puff Inhaler) 2 puff INH QIDP PRN PRN Reason: muscle spasm Albuterol/Ipratropium (Ipratropium/Albuterol 3 Ml Ampul.Neb) 3 ml NEB QIDP PRN PRN Reason: shortness of breath or wheezin Last Admin: 09/10/22 09:04 Dose: 3 ml Albuterol/Ipratropium (Ipratropium/Albuterol 3 Ml Ampul.Neb) 3 ml NEB Q4HRT [facility] Last Admin: 09/11/22 11:18 Dose: 3 ml Benzonatate (Benzonatate 100 Mg Capsule) 200 mg PO TIDP PRN PRN Reason: Cough Last Admin: 09/11/22 08:35 Dose: 200 mg Budesonide (Budesonide 0.5 Mg/2 Ml Ampul.Neb) 0.5 mg NEB BID [facility] Last Admin: 09/11/22 07:37 Dose: 0.5 mg Ceftriaxone Sodium (Ceftriaxone 1 Gm Vial) 1 gm IV Q24H [facility]; Protocol Stop: 09/12/22 09:01 Last Admin: 09/11/22 08:30 Dose: 1 gm Dicyclomine HCl (Dicyclomine 20 Mg Tablet) 10 mg PO TID [facility] Last Admin: 09/11/22 08:29 Dose: 10 mg Docusate Sodium (Docusate Sodium 100 Mg Capsule) 100 mg PO BID [facility] Last Admin: 09/11/22 08:46 Dose: Not Given Enoxaparin Sodium (Enoxaparin 40 Mg/0.4 Ml Syringe) 40 mg SQ BID [facility] Last Admin: 09/11/22 08:30 Dose: 40 mg Estradiol (Estradiol 1 Mg Tablet) 1 mg PO QDAY [facility] Last Admin: 09/11/22 08:30 Dose: 1 mg Guaifenesin (Guaifenesin/Dextromethorphan Oral Destinee) 10 ml PO Q4HP PRN PRN Reason: Cough Last Admin: 09/11/22 05:15 Dose: 10 ml Levothyroxine Sodium (Levothyroxine 125 Mcg Tablet) 125 mcg PO 0730 [facility] Last Admin: 09/11/22 08:30 Dose: 125 mcg Lorazepam (Lorazepam 2 Mg/Ml Vial) 1 mg IV Q4HP PRN PRN Reason: ANXIETY/SEDATION Magnesium Hydroxide (Magnesium Hydroxide 30 Ml Oral.Susp) 30 ml PO DAILYP PRN PRN Reason: Constipation Methylprednisolone Sodium Succinate (Methylprednisolone Sod Succ 40 Mg/Ml Vial) 40 mg IV Q8 [facility] Last Admin: 09/11/22 05:32 Dose: 40 mg Olanzapine (Olanzapine 10 Mg Vial) 10 mg IM Q8HP PRN PRN Reason: Anxiety Last Admin: 09/11/22 05:08 Dose: 10 mg Omeprazole (Omeprazole 20 Mg Capsule) 40 mg PO ACB [facility] Last Admin: 09/11/22 08:29 Dose: 40 mg Ondansetron HCl (Ondansetron 4 Mg/2 Ml Vial) 4 mg IV Q6HP PRN PRN Reason: Nausea And Vomiting Ondansetron HCl (Ondansetron 4 Mg Odt Tablet) 4 mg SL Q6HP PRN PRN Reason: Nausea And Vomiting Budesonide-Glycopyr- Formoterol [Breztri Aerosphere 2 dose INH BID [facility] Last Admin: 09/11/22 08:30 Dose: 2 dose Celebrex 100mg 1 dose PO BID [facility] Last Admin: 09/11/22 08:30 Dose: 1 dose Senna (Sennosides 1 Tablet) 2 tab PO HS [facility] Last Admin: 09/10/22 20:37 Dose: Not Given Sodium Chloride (0.9 % Sodium Chloride 10 Ml Syringe) 10 ml IV Q8 [facility] Last Admin: 09/11/22 05:32 Dose: 10 ml Zolpidem Tartrate (Zolpidem 5 Mg Tablet) 5 mg PO HSP PRN PRN Reason: Insomnia A/P Narrative A/P Narrative: 62 years old female with 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 #Acute on chronic hypoxic respiratory failure #COPD exacerbation #Community-acquired pneumonia, with bilateral lower lobe patchy infiltrate - CxR Small patchy bilateral lower lobe infiltrates. COPD - Covid 19, Inf Negative. -Continue azithromycin, add Rocephin for CAP. Solu-Medrol 40 every 8, bronchod ilator, Acapella, add scheduled duonebs q4 hrs -Continue BiPAP as needed. -Ativan for anxiety which cause patient hyperventilation #Unvaccinated for COVID-19 and influenza -High risk. I have long conversation with patient regarding importance of vaccination. #GERD -Continue home omeprazole #Hypothyroidism: -Continue home levothyroxine DVT PPX: Lovenox 40mg twice daily Code Status : Full code Time Spent With Patient Time: Total time spent is greater than 50% in coordination of care (as documented) at patient's floor/unit and/or counseling patient: QUALITY VTE Deep Vein Thrombosis/Pulmonary Embolism Present on Admission: No
[2022-09-11] MEDS: LORazepam 2 MG/ML VIAL IV PRN (19:49)
[2022-09-11] MEDS: SENNOSIDES 1 TABLET PO SCH (21:48)
[2022-09-11] MEDS: ACETAMINOPHEN 325 MG TABLET PO PRN (21:50)
[2022-09-12] MEDS: IPRATROPIUM/ALBUTEROL 3 ML AMPUL.NEB NEB SCH ×7 (02:15→23:04)
[2022-09-12] MEDS: BENZONATATE 100 MG CAPSULE PO PRN ×3 (02:53→20:56)
[2022-09-12] MEDS: 0.9 % SODIUM CHLORIDE 10 ML SYRINGE IV SCH ×3 (05:48→20:58)
[2022-09-12] MEDS: methylPREDNISolone SOD SUCC 40 MG/ML VIAL IV SCH ×3 (05:48→21:17)
[2022-09-12] MEDS: OMEPRAZOLE 20 MG CAPSULE PO SCH (06:53)
[2022-09-12] MEDS: LEVOTHYROXINE 125 MCG TABLET PO SCH (06:53)
[2022-09-12] MEDS: BUDESONIDE 0.5 MG/2 ML AMPUL.NEB NEB SCH (07:31)
[2022-09-12] MEDS ORDERED: MAGNESIUM SULFATE 2 GM/50 ML BAG IV ONE (08:09)
--- NOTE | 2022-09-12 08:12 | Internal Med Progress Note ---
SUBJECTIVE Subjective Patient information: Note initiated : 09/12/22 at 8:11 am Service Date, if different from initiated Date: [] Patient: Polly Perez 62 y/o F admitted on 09/08/22 for shortness of breath. Chief Complaint: [] Principal diagnosis: cood exacerbation Interval history: Patient seen examined, This AM was doing well till her budesonide nebulizer, afte which her wheezing became quite worse, Budesonide added to allergy list Pt otherwise did not require bipap overnight, no new complaints or concerns. Pertinent ROS: Denies headache, dizziness Denies chest pain, palpitations improving breathing which got worse with budesonide Denies abdominal pain, nausea or vomiting. Constitutional Vitals: Vital Signs Temp Pulse Resp BP Pulse Ox O2 Del Method O2 Flow Rate 97.3 F 102 H 29 H 144/84 94 2 09/12/22 08:01 09/12/22 08:01 09/12/22 08:01 09/12/22 08:01 09/12/22 08:01 09/12/22 07:32 09/12/22 07:32 Period Temp Pulse Resp BP Sys/Arana Pulse Ox O2 Del Method O2 Flow Rate Last 24 Hr 96.9 F-97.8 F 62-119 - 105-150/67-102 93-98 Nasal Cannula- Nasal Cannula 2-4 Intake and Output 09/11/22 09/12/22 09/12/22 19:59 03:59 11:59 Intake Total 700 120 Output Total 600 251 Balance 100 -251 120 Weight 98.611 kg Intake & Output: Intake & Output 09/11/22 09/12/22 09/12/22 19:59 03:59 11:59 Intake Total 700 120 Output Total 600 251 Balance 100 -251 120 Weight 98.611 kg Intake: Oral 700 120 Output: Void Amount 600 250 # of times incontinent of urine 1 Other: Meal Dinner Percent of Meal Consumed 90 Feeding Ability Independent Urine Appearance Clear Clear Urine Color Bright Yellow Bright Yellow Urine Odor Normal # Voids 2 Exam: Constitutional; Afebrile, cooperative, alert, not in distress. Eyes- No icterus, , No periorbital swelling Ears- Ext ear normal, hearing normal to conversation. Neck- Midline trachea, supple Respiratory system: Air Entry equal on both sides, [place] wheeze worse, and air entry is worse, I had examined pt just after budesonide nebs, CVS- Rate rhythm regular, S1,S2 heard, no gallop, no rub. Abdomen- Soft nontender abdomen, no organomegaly, no tenderness, no guarding or rigidity, [employer]- AOOx3, moving all extremities, no gross focal deficit noted. OBJ DATA Labs CBC & Chem 7: 09/08/22 16:09 09/08/22 16:09 Meds: Medications Acetaminophen (Acetaminophen 325 Mg Tablet) 650 mg PO Q6HP PRN; Protocol PRN Reason: Per Pain Protocol/Fever > 101 Last Admin: 09/11/22 21:50 Dose: 650 mg Albuterol Sulfate (Albuterol Sulfate 60 Puff Inhaler) 2 puff INH QIDP PRN PRN Reason: muscle spasm Albuterol/Ipratropium (Ipratropium/Albuterol 3 Ml Ampul.Neb) 3 ml NEB QIDP PRN PRN Reason: shortness of breath or wheezin Last Admin: 09/10/22 09:04 Dose: 3 ml Albuterol/Ipratropium (Ipratropium/Albuterol 3 Ml Ampul.Neb) 3 ml NEB Q4HRT [facility] Last Admin: 09/12/22 07:31 Dose: 3 ml Benzonatate (Benzonatate 100 Mg Capsule) 200 mg PO TIDP PRN PRN Reason: Cough Last Admin: 09/12/22 02:53 Dose: 200 mg Ceftriaxone Sodium (Ceftriaxone 1 Gm Vial) 1 gm IV Q24H [facility]; Protocol Stop: 09/12/22 09:01 Last Admin: 09/11/22 08:30 Dose: 1 gm Dicyclomine HCl (Dicyclomine 20 Mg Tablet) 10 mg PO TID [facility] Last Admin: 09/11/22 21:49 Dose: 10 mg Docusate Sodium (Docusate Sodium 100 Mg Capsule) 100 mg PO BID [facility] Last Admin: 09/11/22 21:48 Dose: 100 mg Enoxaparin Sodium (Enoxaparin 40 Mg/0.4 Ml Syringe) 40 mg SQ BID [facility] Last Admin: 09/11/22 21:51 Dose: 40 mg Estradiol (Estradiol 1 Mg Tablet) 1 mg PO QDAY [facility] Last Admin: 09/11/22 08:30 Dose: 1 mg Guaifenesin (Guaifenesin/Dextromethorphan Oral Destinee) 10 ml PO Q4HP PRN PRN Reason: Cough Last Admin: 09/11/22 15:10 Dose: 10 ml Magnesium Sulfate (Magnesium Sulfate) 2 gm in 50 mls @ 50 mls/hr IV ONCE ONE Stop: 09/12/22 09:08 Levothyroxine Sodium (Levothyroxine 125 Mcg Tablet) 125 mcg PO 0730 [facility] Last Admin: 09/12/22 06:53 Dose: 125 mcg Lorazepam (Lorazepam 2 Mg/Ml Vial) 1 mg IV Q4HP PRN PRN Reason: ANXIETY/SEDATION Last Admin: 09/11/22 19:49 Dose: 1 mg Magnesium Hydroxide (Magnesium Hydroxide 30 Ml Oral.Susp) 30 ml PO DAILYP PRN PRN Reason: Constipation Methylprednisolone Sodium Succinate (Methylprednisolone Sod Succ 40 Mg/Ml Vial) 40 mg IV Q8 [facility] Last Admin: 09/12/22 05:48 Dose: 40 mg Olanzapine (Olanzapine 10 Mg Vial) 10 mg IM Q8HP PRN PRN Reason: Anxiety Last Admin: 09/11/22 05:08 Dose: 10 mg Omeprazole (Omeprazole 20 Mg Capsule) 40 mg PO ACB [facility] Last Admin: 09/12/22 06:53 Dose: 40 mg Ondansetron HCl (Ondansetron 4 Mg/2 Ml Vial) 4 mg IV Q6HP PRN PRN Reason: Nausea And Vomiting Ondansetron HCl (Ondansetron 4 Mg Odt Tablet) 4 mg SL Q6HP PRN PRN Reason: Nausea And Vomiting Budesonide-Glycopyr- Formoterol [Breztri Aerosphere 2 dose INH BID [facility] Last Admin: 09/11/22 21:52 Dose: 2 dose Celebrex 100mg 1 dose PO BID [facility] Last Admin: 09/11/22 21:51 Dose: 1 dose Senna (Sennosides 1 Tablet) 2 tab PO HS [facility] Last Admin: 09/11/22 21:48 Dose: 2 tab Sodium Chloride (0.9 % Sodium Chloride 10 Ml Syringe) 10 ml IV Q8 [facility] Last Admin: 09/12/22 05:48 Dose: 10 ml Zolpidem Tartrate (Zolpidem 5 Mg Tablet) 5 mg PO HSP PRN PRN Reason: Insomnia Last Admin: 09/11/22 21:50 Dose: 5 mg A/P Narrative A/P Narrative: 62 years old female with 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 #Acute on chronic hypoxic respiratory failure #COPD exacerbation #Community-acquired pneumonia, with bilateral lower lobe patchy infiltrate - CxR Small patchy bilateral lower lobe infiltrates. COPD - Covid 19, Inf Negative. -Continue azithromycin, add Rocephin for CAP. Solu-Medrol 40 every 8, bronchodilator, Acapella, add scheduled duonebs q4 hrs -Continue BiPAP as needed, did not need for 2 days -Ativan for anxiety which cause patient hyperventilation -d/c budesonide given worsening respiratory status after budesonide use. -give 2gms IV mag suplphate for bronchospasms. #GERD -Continue home omeprazole #Hypothyroidism: -Continue home levothyroxine DVT PPX: Lovenox 40mg twice daily Code Status : Full code Time Spent With Patient Time: Total time spent is greater than 50% in coordination of care (as documented) at patient's floor/unit and/or counseling patient: QUALITY VTE Deep Vein Thrombosis/Pulmonary Embolism Present on Admission: No
[2022-09-12] MEDS: DICYCLOMINE 20 MG TABLET PO SCH ×3 (08:35→21:19)
[2022-09-12] MEDS: ENOXAPARIN 40 MG/0.4 ML SYRINGE SQ SCH ×2 (08:35→20:57)
[2022-09-12] MEDS: ESTRADIOL 1 MG TABLET PO SCH (08:35)
[2022-09-12] MEDS: BUDESONIDE GLYCOPYR FORMOTEROL INH SCH ×3 (08:35→21:20)
[2022-09-12] MEDS: CELEBREX PO SCH ×2 (08:35→20:58)
[2022-09-12] MEDS: DOCUSATE SODIUM 100 MG CAPSULE PO SCH ×2 (08:35→20:57)
[2022-09-12] MEDS: cefTRIAXone 1 GM VIAL IV SCH (08:41)
[2022-09-12] MEDS: guaiFENesin/DEXTROMETHORPHAN ORAL SOL PO PRN ×2 (10:10→20:59)
[2022-09-12] MEDS: ACETAMINOPHEN 325 MG TABLET PO PRN ×2 (17:23→21:18)
[2022-09-12] MEDS: SENNOSIDES 1 TABLET PO SCH (20:57)
[2022-09-13] MEDS: IPRATROPIUM/ALBUTEROL 3 ML AMPUL.NEB NEB SCH ×2 (02:55→08:30)
[2022-09-13] MEDS: methylPREDNISolone SOD SUCC 40 MG/ML VIAL IV SCH ×3 (05:32→21:21)
[2022-09-13] MEDS: 0.9 % SODIUM CHLORIDE 10 ML SYRINGE IV SCH ×3 (05:33→21:21)
[2022-09-13 06:48] LABS: Basophils # (Auto) 0.02 K/mcL (0.00-0.30); Basophils % (Auto) 0.1 % (0.0-2.0); Eosinophils # (Auto) 0 K/mcL (0.00-0.70); Eosinophils % (Auto) 0 % (0.0-7.0); Hematocrit 46.1 % (34.1-44.9); Hemoglobin 14.6 g/dL (11.2-15.7); Lymphocytes # (Auto) 1.35 K/mcL (1.50-4.80); Mean Cell Volume 93.1 fL (80.0-100.0); Mean Corpuscular HGB Conc 31.7 g/dL (31.0-36.0); Mean Platelet Volume 9.6 fL (8.8-12.5); Monocytes # (Auto) 0.46 K/mcL (0.10-0.90); Monocytes % (Auto) 3.4 % (1.0-12.0); Neutrophils % (Auto) 84.7 % (38.0-78.0); Platelet Count 253 K/mcL (140-440); RBC 4.95 M/mcL (3.59-5.38); Red Cell Distribution Width 13.5 % (11.5-14.5); WBC 13.5 K/mcL (4.5-11.0)
[2022-09-13] MEDS: BENZONATATE 100 MG CAPSULE PO PRN (06:51)
[2022-09-13] MEDS: guaiFENesin/DEXTROMETHORPHAN ORAL SOL PO PRN ×2 (06:51→21:29)
[2022-09-13] MEDS: LEVOTHYROXINE 125 MCG TABLET PO SCH (06:52)
[2022-09-13] MEDS: OMEPRAZOLE 20 MG CAPSULE PO SCH (06:52)
[2022-09-13 07:07] LABS: ALT/SGPT 17 U/L (<40); AST/SGOT 13 U/L (<32); Albumin 3.1 gm/dL (3.2-5.2); Albumin/Globulin Ratio 1.3 (1.0-2.3); Alkaline Phosphatase 81 U/L (39-117); Bilirubin,Total < 0.2 mg/dL (0.1-1.0); Blood Urea Nitrogen 25 mg/dL (8-23); Calcium 9.8 mg/dL (8.6-10.4); Carbon Dioxide 34 mmol/L (22-30); Chloride 101 mmol/L (96-108); Globulin 2.3 gm/dL (2.2-3.7); Glomerular Filtration Rate 98; Glucose 144 mg/dL (70-105)
[2022-09-13] MEDS: DOCUSATE SODIUM 100 MG CAPSULE PO SCH ×2 (08:29→21:20)
[2022-09-13] MEDS: CELEBREX PO SCH ×2 (08:29→21:20)
[2022-09-13] MEDS: ESTRADIOL 1 MG TABLET PO SCH (08:29)
[2022-09-13] MEDS: DICYCLOMINE 20 MG TABLET PO SCH ×3 (08:29→21:30)
[2022-09-13] MEDS: BUDESONIDE GLYCOPYR FORMOTEROL INH SCH ×2 (08:30→21:21)
[2022-09-13] MEDS: ENOXAPARIN 40 MG/0.4 ML SYRINGE SQ SCH ×2 (08:30→21:20)
[2022-09-13] MEDS ORDERED: IOPAMIDOL 100 ML BOTTLE IV ONE (11:34)
[2022-09-13] MEDS: CEFEPIME 2 GM VIAL IV SCH ×2 (11:39→21:20)
--- NOTE | 2022-09-13 13:18 | Cat Scan Report ---
History: Short of breath TECHNIQUE: Following injection of intravenous nonionic contrast the chest was imaged during the arterial phase scanning from the thoracic inlet through the diaphragms. Sagittal, coronal and axial MIPS images were created. The radiation exposure was limited using dose reduction technology. FINDINGS: There is subtle emphysema in both lung apices. There is no evidence of pneumonia or lung mass. Minor parenchymal scarring is present in both lung bases. There is no evidence of bronchitis. No pleural effusion is present. Aorta is normal in caliber. 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 This vessel is normal in caliber. The heart is normal in size and contour. There are few calcified plaques left anterior descending coronary. Liver is normal in size and there is mild fatty infiltration. IMPRESSION: Minor emphysema and no acute abnormality Interpreted and Authenticated by: Carlos Ordoñez 09/13/22
--- NOTE | 2022-09-13 15:36 | Internal Med Progress Note ---
SUBJECTIVE Subjective Patient information: Note initiated : 09/13/22 at 3:36 pm Service Date, if different from initiated Date: [] Patient: Polly Perez 62 y/o F admitted on 09/08/22 for shortness of breath. Chief Complaint: [] Principal diagnosis: cood exacerbation Interval history: 09/13 The patient does not seem to tolerate nebulizers very well but does tolerate an albuterol inhaler. We will continue with an albuterol inhaler, discontinued nebulized bronchodilators. Patient had increased sputum production and WBC increased today so obtain sputum culture and started cefepime. CT chest with contrast showed minor emphysema with no acute abnormality. Plan is to continue cefepime while awaiting sputum culture results. Overall, the patient appears to be slowly improving. Physical exam Head: Atraumatic, normal inspection. Eyes: normal appearance, no scleral icterus. Neck: full ROM Respiratory: Supplemental oxygen, no wheezing appreciated, no evidence of respiratory distress. Cardiovascular: normal rate and rhythm, S1, S2. GI/Abdominal: soft, nontender, no guarding. Extremities: full range of motion, nontender. Neurological: CN II-XII intact, intact motor, intact sensation. Psychiatric: normal mood. Skin: warm, normal color Constitutional Vitals: Vital Signs Temp Pulse Resp BP Pulse Ox O2 Del Method O2 Flow Rate 97 F 78 16 119/73 97 7 09/13/22 08:00 09/13/22 14:01 09/13/22 14:01 09/13/22 14:01 09/13/22 14:01 09/13/22 12:10 09/13/22 12:10 Period Temp Pulse Resp BP Sys/Arana Pulse Ox O2 Del Method O2 Flow Rate Last 24 Hr 96.8 F-97.8 F 69-123 - 107-162/73-114 91-99 Nasal Cannula- Venturi Mask 2-7 Intake and Output 09/13/22 09/13/22 09/13/22 03:59 11:59 19:59 Intake Total 200 Output Total 401 Balance -201 Weight 100.244 kg 100.244 kg Patient Weight 09/14/22 03:59 Weight 100.244 kg Intake & Output: Intake & Output 09/13/22 09/13/22 09/13/22 03:59 11:59 19:59 Intake Total 200 Output Total 401 Balance -201 Weight 100.244 kg 100.244 kg Intake: Oral 200 Output: Void Amount 400 # of times incontinent of urine 1 Other: Urine Appearance Clear Urine Color Bright Yellow Urine Odor Normal OBJ DATA Labs CBC & Chem 7: 09/13/22 05:24 09/13/22 05:24 Labs: Abnormal Lab Results 09/13/22 09/13/22 05:24 05:24 WBC 13.5 H Hct 46.1 H Immature Gran % (Auto) 1.8 H Neut % (Auto) 84.7 H Lymph % (Auto) 10.0 L Lymph # (Auto) 1.35 L Immature Gran # 0.24 H Absolute Neutrophils 11.42 H Carbon Dioxide 34 H Anion Gap 4.0 L BUN 25 H Glucose 144 H Total Protein 5.4 L Albumin 3.1 L Meds: Medications Acetaminophen (Acetaminophen 325 Mg Tablet) 650 mg PO Q6HP PRN; Protocol PRN Reason: Per Pain Protocol/Fever > 101 Last Admin: 09/12/22 21:18 Dose: 650 mg Albuterol Sulfate (Albuterol Sulfate 60 Puff Inhaler) 2 puff INH QIDP PRN PRN Reason: muscle spasm Albuterol/Ipratropium (Ipratropium/Albuterol 3 Ml Ampul.Neb) 3 ml NEB QIDP PRN PRN Reason: shortness of breath or wheezin Last Admin: 09/10/22 09:04 Dose: 3 ml Benzonatate (Benzonatate 100 Mg Capsule) 200 mg PO TIDP PRN PRN Reason: Cough Last Admin: 09/13/22 06:51 Dose: 200 mg Cefepime HCl (Cefepime 2 Gm Vial) 2 gm IV Q8H [facility]; Protocol Last Admin: 09/13/22 11:39 Dose: 2 gm Dicyclomine HCl (Dicyclomine 20 Mg Tablet) 10 mg PO TID [facility] Last Admin: 09/13/22 08:29 Dose: 10 mg Docusate Sodium (Docusate Sodium 100 Mg Capsule) 100 mg PO BID [facility] Last Admin: 09/13/22 08:29 Dose: 100 mg Enoxaparin Sodium (Enoxaparin 40 Mg/0.4 Ml Syringe) 40 mg SQ BID [facility] Last Admin: 09/13/22 08:30 Dose: 40 mg Estradiol (Estradiol 1 Mg Tablet) 1 mg PO QDAY [facility] Last Admin: 09/13/22 08:29 Dose: 1 mg Guaifenesin (Guaifenesin/Dextromethorphan Oral Destinee) 10 ml PO Q4HP PRN PRN Reason: Cough Last Admin: 09/13/22 06:51 Dose: 10 ml Levothyroxine Sodium (Levothyroxine 125 Mcg Tablet) 125 mcg PO 0730 [facility] Last Admin: 09/13/22 06:52 Dose: 125 mcg Lorazepam (Lorazepam 2 Mg/Ml Vial) 1 mg IV Q4HP PRN PRN Reason: ANXIETY/SEDATION Last Admin: 09/11/22 19:49 Dose: 1 mg Magnesium Hydroxide (Magnesium Hydroxide 30 Ml Oral.Susp) 30 ml PO DAILYP PRN PRN Reason: Constipation Methylprednisolone Sodium Succinate (Methylprednisolone Sod Succ 40 Mg/Ml Vial) 40 mg IV Q8 [facility] Last Admin: 09/13/22 14:00 Dose: 40 mg Olanzapine (Olanzapine 10 Mg Vial) 10 mg IM Q8HP PRN PRN Reason: Anxiety Last Admin: 09/11/22 05:08 Dose: 10 mg Omeprazole (Omeprazole 20 Mg Capsule) 40 mg PO ACB [facility] Last Admin: 09/13/22 06:52 Dose: 40 mg Ondansetron HCl (Ondansetron 4 Mg/2 Ml Vial) 4 mg IV Q6HP PRN PRN Reason: Nausea And Vomiting Ondansetron HCl (Ondansetron 4 Mg Odt Tablet) 4 mg SL Q6HP PRN PRN Reason: Nausea And Vomiting Budesonide-Glycopyr- Formoterol [Breztri Aerosphere 2 dose INH BID [facility] Last Admin: 09/13/22 08:30 Dose: Not Given Celebrex 100mg 1 dose PO BID [facility] Last Admin: 09/13/22 08:29 Dose: 1 dose Senna (Sennosides 1 Tablet) 2 tab PO HS [facility] Last Admin: 09/12/22 20:57 Dose: 2 tab Sodium Chloride (0.9 % Sodium Chloride 10 Ml Syringe) 10 ml IV Q8 [facility] Last Admin: 09/13/22 14:00 Dose: 10 ml Zolpidem Tartrate (Zolpidem 5 Mg Tablet) 5 mg PO HSP PRN PRN Reason: Insomnia Last Admin: 09/11/22 21:50 Dose: 5 mg A/P Narrative A/P Narrative: 62 years old female with 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 #Acute on chronic hypoxic respiratory failure #COPD exacerbation #Community-acquired pneumonia, with bilateral lower lobe patchy infiltrate - CxR Small patchy bilateral lower lobe infiltrates. COPD - Covid 19, Inf Negative. -Cefepime for now pending sputum culture results. -Completed 3 days of azithromycin. -Supplemental oxygen as needed. -Solu-Medrol IV. -Albuterol inhaler as needed, does not seem to tolerate nebulizer bronchodilator therapy well. -Ativan for anxiety which cause patient hyperventilation #GERD -Continue home omeprazole #Hypothyroidism: -Continue home levothyroxine DVT PPX: Lovenox 40mg twice daily Code Status : Full code Time Spent With Patient Time: Total time spent is greater than 50% in coordination of care (as documented) at patient's floor/unit and/or counseling patient: QUALITY VTE Deep Vein Thrombosis/Pulmonary Embolism Present on Admission: No
[2022-09-13] MEDS: SENNOSIDES 1 TABLET PO SCH (21:20)
[2022-09-14] MEDS: LORazepam 2 MG/ML VIAL IV PRN (01:23)
[2022-09-14] MEDS: methylPREDNISolone SOD SUCC 40 MG/ML VIAL IV SCH (05:58)
[2022-09-14] MEDS: 0.9 % SODIUM CHLORIDE 10 ML SYRINGE IV SCH (05:58)
[2022-09-14] MEDS: CEFEPIME 2 GM VIAL IV SCH (05:58)
[2022-09-14] MEDS: OMEPRAZOLE 20 MG CAPSULE PO SCH (07:49)
[2022-09-14] MEDS: LEVOTHYROXINE 125 MCG TABLET PO SCH (07:49)
[2022-09-14] MEDS: guaiFENesin/DEXTROMETHORPHAN ORAL SOL PO PRN (07:56)
[2022-09-14] MEDS: BENZONATATE 100 MG CAPSULE PO PRN (07:56)
[2022-09-14 08:53] LABS: Basophils # (Auto) 0.03 K/mcL (0.00-0.30); Basophils % (Auto) 0.2 % (0.0-2.0); Eosinophils # (Auto) 0 K/mcL (0.00-0.70); Eosinophils % (Auto) 0 % (0.0-7.0); Hematocrit 49.9 % (34.1-44.9); Hemoglobin 15.6 g/dL (11.2-15.7); Lymphocytes # (Auto) 1.35 K/mcL (1.50-4.80); Lymphocytes % (Auto) 9.5 % (15.5-49.0); Mean Corpuscular HGB Conc 31.3 g/dL (31.0-36.0); Mean Platelet Volume 9.8 fL (8.8-12.5); Monocytes # (Auto) 0.56 K/mcL (0.10-0.90); Monocytes % (Auto) 3.9 % (1.0-12.0); Neutrophils % (Auto) 84.9 % (38.0-78.0); Platelet Count 285 K/mcL (140-440); RBC 5.25 M/mcL (3.59-5.38); Red Cell Distribution Width 13.4 % (11.5-14.5); WBC 14.3 K/mcL (4.5-11.0)
[2022-09-14] MEDS: DICYCLOMINE 20 MG TABLET PO SCH (09:10)
[2022-09-14] MEDS: ESTRADIOL 1 MG TABLET PO SCH (09:10)
[2022-09-14] MEDS: DOCUSATE SODIUM 100 MG CAPSULE PO SCH (09:10)
[2022-09-14] MEDS: ENOXAPARIN 40 MG/0.4 ML SYRINGE SQ SCH (09:10)
[2022-09-14] MEDS: BUDESONIDE GLYCOPYR FORMOTEROL INH SCH (09:11)
[2022-09-14] MEDS: CELEBREX PO SCH (09:11)
[2022-09-14 09:18] LABS: ALT/SGPT 23 U/L (<40); AST/SGOT 15 U/L (<32); Albumin 3.4 gm/dL (3.2-5.2); Albumin/Globulin Ratio 1.4 (1.0-2.3); Alkaline Phosphatase 86 U/L (39-117); Bilirubin,Direct < 0.2 mg/dL (0-0.3); Bilirubin,Total 0.2 mg/dL (0.1-1.0); Blood Urea Nitrogen 29 mg/dL (8-23); Calcium 10.1 mg/dL (8.6-10.4); Carbon Dioxide 36 mmol/L (22-30); Chloride 99 mmol/L (96-108); Globulin 2.4 gm/dL (2.2-3.7); Glomerular Filtration Rate 98; Glucose 120 mg/dL (70-105); Lactate Dehydrogenase 162 U/L (135-225); Phosphorous 4.9 mg/dL (2.5-4.5); Triglycerides 135 mg/dL (<150)
--- NOTE | 2022-09-14 10:42 | Discharge Summary ---
Discharge Provider Provider IMPORTANT FOLLOW-UP INFORMATION FOR PCP: Patient information: Note initiated : 09/14/22 at 10:36 am Service Date, if different from initiated Date: [] Patient: Polly Perez 62 y/o F admitted on 09/08/22 for shortness of breath. Chief Complaint: [] Date of admission: 09/08/22 20:43 Discharge date: 09/14/22 Primary care physician: Ashley Persaud Consults: 09/08/22 18:11 Consult to Physician [CONS] Stat Comment: Consulting Provider: Riley Powers Reason For Exam: Physician to Consult COURSE Hospital Course Hospital course: Polly Perez is a 62-year-old female with a history of COPD who was admitted for acute on chronic hypoxic respiratory failure secondary to community-acquired pneumonia and a COPD exacerbation. The patient was treated with ceftriaxone and azithromycin then escalated to cefepime from ceftriaxone. She completed 3 days of azithromycin. The patient also received Solu-Medrol IV and bronchodilator treatment. The patient did not respond well to nebulized bronchodilator treatment therefore it was switched to inhaled albuterol which seemed to work better than the nebulizer. The patient was slow to improve with treatment and required oxygen supplementation throughout her hospitalization. PCR testing for SARS-CoV-2, influenza A, influenza B, RSV was negative. PCR testing for Bordetella was negative. The patient gradually recovered from her respiratory illness and was discharged to home. She will likely require more oxygen supplementation for at least a week or 2 then hopefully return back to her baseline which was nocturnal oxygen 2 L/min. The patient is discharged on Levaquin for 4 more days and a prednisone taper. A referral for pulmonary rehabilitation was provided at discharge and a post hospital follow-up pulmonology referral was requested at discharge. Physical exam Head: Atraumatic, normal inspection. Eyes: normal appearance, no scleral icterus. Neck: full ROM Respiratory: no respiratory distress. Cardiovascular: normal rate and rhythm, S1, S2. GI/Abdominal: soft, nontender, no guarding. Extremities: full range of motion, nontender. Neurological: CN II-XII intact, intact motor, intact sensation. Psychiatric: normal mood. Skin: warm, normal color Discharge diagnosis: Acute on chronic hypoxic respiratory failure Secondary discharge diagnosis: Community-acquired pneumonia COPD exacerbation Time Spent with Patient Time attestation: Total time spent providing and/or coordinating discharge services: Time spent: Greater than 30 minutes EXAM Constitutional Vitals: Temp Pulse Resp BP Pulse Ox O2 Del Method O2 Flow Rate 96.9 F L 74 16 126/87 94 3 09/14/22 08:05 09/14/22 10:27 09/14/22 10:27 09/14/22 10:27 09/14/22 10:27 09/14/22 10:27 09/14/22 10:27 Discharge Data Data Completed and Pending Labs on day of discharge: Labs from last 24 hours 09/14/22 09/14/22 09/14/22 08:08 08:08 08:08 WBC 14.3 H RBC 5.25 Hgb 15.6 Hct 49.9 H MCV 95.0 MCH 29.7 MCHC 31.3 RDW 13.4 Plt Count 285 MPV 9.8 Immature Gran % (Auto) 1.5 H Neut % (Auto) 84.9 H Lymph % (Auto) 9.5 L [place] % (Auto) 3.9 Eos % (Auto) 0 Baso % (Auto) 0.2 Lymph # (Auto) 1.35 L [place] # (Auto) 0.56 Eos # (Auto) 0 Baso # (Auto) 0.03 Immature Gran # 0.22 H Absolute Neutrophils 12.11 H Sodium 138 Potassium 4.6 Chloride 99 Carbon Dioxide 36 H Anion Gap 3.0 L BUN 29 H Creatinine 0.6 GFR Calculation 98 Glucose 120 H Uric Acid 4.0 Calcium 10.1 Phosphorus 4.9 H Magnesium 2.4 Total Bilirubin 0.2 Direct Bilirubin < 0.2 GGT 22 AST 15 ALT 23 Alkaline Phosphatase 86 Lactate Dehydrogenase 162 Total Protein 5.8 L Albumin 3.4 Globulin 2.4 Albumin/Globulin Ratio 1.4 Triglycerides 135 Procalcitonin 0.02 Discharge Plan Patient/Caregiver Discharge Instructions Activity: increase activity as tolerated Diet: Regular Diet Prescriptions: New levofloxacin 750 mg tablet 750 mg PO QDAY 4 Days Qty: 4 0RF prednisone 10 mg tablet See Rx Instructions .ROUTE .COMPLEX Qty: 20 0RF Rx Instructions: Take prednisone 30 mg daily for 3 days followed by prednisone 20 mg for 3 days followed by prednisone 10 mg for 3 days then discontinue. Continued hydrocortisone [Proctozone-HC] 2.5 % cream with perineal applicator 1 applic MO BID PRN (Reason: hemorrhoids) Qty: 30 4RF dicyclomine 10 mg capsule 10 mg PO TID Qty: 90 3RF estradiol 2 mg tablet 1 mg PO QDAY Qty: 45 3RF celecoxib 100 mg capsule 100 mg PO BID Qty: 180 1RF lorazepam 1 mg tablet 0.5 - 1 mg PO QDAY PRN (Reason: anxiety) Qty: 30 1RF ipratropium-albuterol 0.5 mg-3 mg(2.5 mg base)/3 mL solution for nebulization 3 ml inhalation QID PRN (Reason: shortness of breath or wheezing) Qty: 180 6RF Breztri Aerosphere 160-9-4.8 mcg/actuation HFA aerosol inhaler 2 inh inhalation BID Qty: 10.7 6RF acetaminophen [Tylenol Extra Strength] 500 mg tablet 500 mg PO Q6H PRN (Reason: Pain) omeprazole 40 mg capsule,delayed release(DR/EC) 40 mg PO BID levothyroxine 125 mcg tablet 1 tab PO QDAY albuterol sulfate [Ventolin HFA] 90 mcg/actuation HFA aerosol inhaler 2 puff INHALATION QIDP PRN (Reason: muscle spasm) Other Ambulatory Orders: Outpatient Pulmonary Rehab Program (Routine) Location: None Selected Ordered By: Doni Taylor Follow Up Plan Follow up with: Ashley Persaud ARNP [Primary Care Provider] - (Please call Friday to schedule a follow up appointment) Patient Disposition: Home, Self-Care Prognosis: Serious Overall status at discharge: patient is progressing back to baseline Discharge Orders: Discharge Order (Routine); Ordered 09/14/22 Ordered By: Doni Taylor QUALITY VTE Deep Vein Thrombosis/Pulmonary Embolism Present on Admission: No
== END 2022-09-14 13:30 | disposition home or self-care (01) | DRG 189 ==
LOC: ED 15:36 → MEDSUR 20:43 → ICU 21:54
PROVIDERS: ADMIT Internal Medicine; ATTEND Internal Medicine